=== PATIENT | male | born 1975 | race Caucasian/White ===

== ENCOUNTER 2023-12-19 12:26 | Emergency (ER) | payer SELFPAY ==
[~2023-12-19] VITALS: Ht 188 cm; Wt 90.7 kg
[2023-12-19 12:41] VITALS: BP 127/83
== END 2023-12-19 15:26 | disposition home or self-care (01) ==
LOC: ER 12:26
DX: S61.412A Laceration without foreign body of left hand, initial encounter (principal); W29.8XXA Contact with other powered hand tools and household machinery, initial encounter; Z88.1 Allergy status to other antibiotic agents
CPT/HCPCS: 12002; 99282-25